=== PATIENT | female | born 1970 | race African-American/Black ===

== ENCOUNTER 2021-06-08 15:34 | Emergency (ER) | payer OTHER ==
[2021-06-08 15:55] VITALS: BP 140/95; PULSE 83; TEMP 98.3; BMI 33.6
[2021-06-08 17:10] LABS: CALCIUM 9.1 mg/dL (8.5-10.1)
[2021-06-08 17:11] LABS: BLOOD UREA NITROGEN 9.4 mg/dL (7-18)
[2021-06-08 17:14] LABS: CREATININE 0.9 mg/dL (0.55-1.3)
== END 2021-06-08 19:02 ==
LOC: JER 15:34
DX: R07.89 Other chest pain (principal)
CPT/HCPCS: 36415; 71275-TC; 80048; 84703; 99284-25; Q9967